=== PATIENT | male | born 1950 | race Caucasian/White ===

== ENCOUNTER 2022-06-16 08:02 | Outpatient (CLI) | payer MEDICARE, SELFPAY ==
--- NOTE | ~2022-06-16 | XR_ITS ---
XR knee RT 2V 06/16/2022 08:35 Indication: Right knee pain Procedure: 2 views right knee Comparison: No prior studies for comparison. Findings: Mild osteoarthritis of the right knee. No fracture, subluxation or dislocation. No signific ant joint effusion. No foreign bodies. Impression: 1: Mild osteoarthritis of the right knee. Reviewed, dictated and finalized at location B. Impression: 1: Mild osteoarthritis of the right knee.
--- NOTE | ~2022-06-16 | XR_ITS ---
XR knee LT 2V 06/16/2022 08:35 Indication: Left knee pain Procedure: 2 views left knee Comparison: No prior studies for comparison. Findings: Mild osteoarthritis of the left knee. No fracture, subluxation or dislocation. No significa nt joint effusion. No foreign bodies. Impression: 1: Mild osteoarthritis of the left knee. Reviewed, dictated and finalized at location B. Impression: 1: Mild osteoarthritis of the left knee.
[2022-06-16 08:24] LABS: Basophils Absolute Auto 0.05 K/mm3 (0.00-0.10); Basophils Percent Auto 0.8 % (0.0-1.0); Eosinophils Absolute Auto 0.26 K/mm3 (0.02-0.50); Eosinophils Percent Auto 4.1 % (1.0-6.0); Hematocrit 43.9 % (37.0-46.0); Hemoglobin 15.1 g/dL (12.4-15.3); Immature Granulocyte Absolute 0.02 K/mm3 (0.00-0.00); Immature Granulocyte Percent A 0.3 % (0.0-0.0); Lymphocytes Absolute Auto 1.41 K/mm3 (1.10-4.50); Lymphocytes Percent Auto 22.3 % (18.0-42.0); Mean Corpuscular HGB Conc 34.4 g/dL (32.0-36.0); Mean Corpuscular Hemoglobin 31.5 pg (27.0-31.0); Mean Corpuscular Volume 91.5 fL (78.0-102.0); Mean Platelet Volume 8.7 fl (8.7-11.0); Monocytes Absolute Auto 0.84 K/mm3 (0.10-0.90); Monocytes Percent Auto 13.3 % (2.0-11.0); Neutrophils Absolute Auto 3.7 K/mm3 (1.7-7.2); Neutrophils Percent Auto 59.2 % (50.0-70.0); Platelet Count Result 346 K/mm3 (150-420); White Blood Count 6.3 K/mm3 (4.8-10.8)
[2022-06-16 08:49] LABS: Alanine Aminotransferase 25 U/L (16-63); Albumin Level 4.1 g/dL (3.4-5.0); Alkaline Phosphatase 49 U/L (46-116); Anion Gap 9 mmol/L (8-16); Aspartate Amino Transferase 17 U/L (15-37); Bilirubin,Total 0.4 mg/dL (0.00-1.00); Blood Urea Nitrogen 13 mg/dL (7-18); Calcium 9.2 mg/dL (8.5-10.1); Carbon Dioxide 29 mmol/L (21-32); Chloride 102 mmol/L (98-108); Cholesterol 229 mg/dL (0-200); Estimated Glomerular Filt Rate > 60; Glucose 125 mg/dL (70-99); HDL Direct 54 mg/dL (40-60); LDL Cholesterol Calculated 144 mg/dL (<130); Magnesium 1.8 mg/dL (1.8-2.4); Osmolality Calculated 291 mOsm/kg (285-295); Sodium 140 mmol/L (136-145); Total Protein 7.4 g/dL (6.4-8.2); Triglycerides 154 mg/dL (0-150)
[2022-06-17 16:32] LABS: Hemoglobin A1C 5.9 % (<5.7)
== END 2022-06-16 08:03 | disposition home or self-care (01) ==
LOC: CHSLAB 08:07
PROVIDERS: PCP Nurse Practitioner Family; Visit Provider Nurse Practitioner Family
DX: I49.9 Cardiac arrhythmia, unspecified (principal); I10 Essential (primary) hypertension; R73.09 Other abnormal glucose; Z13.6 Encounter for screening for cardiovascular disorders; M25.562 Pain in left knee; M25.561 Pain in right knee
CPT/HCPCS: 36415; 73560; 80053; 80061; 83036; 83735; 85025

== ENCOUNTER 2022-06-25 12:06 | Outpatient (CLI) | payer MEDICARE, SELFPAY ==
--- NOTE | 2022-06-25 12:12 | ECHO_ITS ---
Patient Info Name: Federico Nielsen Age: 71 years : 1950 Gender: Male Ht: 72 in Wt: 190 lbs BSA: 2.10 m2 HR: 69 bpm BP: 139 / 91 mmHg Technical Quality: Fair Exam Date: 06/25/2022 12:05 PM Exam Location: [facility] Patient Status: Outpatient Admit Date: 06/25/2022 Staff Ordering Physician: Marysol Ansari NP Educational Administrator: Kapil Cason RDCS, RT Attending Provider: Marysol Ansari NP Referring Physician: Elan BARRON; Exam Type: CA echo doppler color flow Study Info Indications I51.7 - Cardiomegaly Complete two-dimensional, color flow and Doppler transthoracic echocardiogram is performed. Strain analysis performed. Summary 1. Complete two-dimensional, color flow and Doppler transthoracic echocardiogram is performed. 2. Left ventricular chamber dimension is normal. 3. Left ventricular systolic function is normal, estimated at 55-60%. 4. The left ventricular diastolic function is grade I diastolic dysfunction. 5. Tissue doppler E/e' is not measured. 6. Global longitudinal strain is normal at -20.3%. 7. There is mild aortic valve sclerosis. 8. There is mild to moderate aortic valve regurgitation. Left Ventricle Tissue doppler E/e' is not measured. Global longitudinal strain is normal at -20.3%. Left ventricular chamber dimension is normal. Left ventricular systolic function is normal, estimated at 55-60%. The left ventricular diastolic function is grade I diastolic dysfunction. Right Ventricle Right ventricular systolic function is normal and with normal TAPSE 2.5 cm. Right ventricular chamber dimension is normal. Left Atria Left atrial chamber dimension is normal. Right Atria Right atrial chamber dimension is normal. Aortic Valve The aortic valve is not well visualized. Cannot determine number of aortic valve leaflets. There is mild aortic valve sclerosis. There is no aortic valve stenosis. There is mild to moderate aortic valve regurgitation. Pulmonic Valve There is no pulmonic regurgitation. Mitral Valve There is no mitral valve stenosis. There is no mitral valve regurgitation. Tricuspid Valve There is no tricuspid valve regurgitation. Pericardium/Pleural There is no pericardial effusion. Inferior Vena Cava Normal inferior vena cava with >50% collapse upon inspiration consistent with normal right atrial pressure, 5 mmHg. Aorta The aortic root size at the sinus of Valsalva is normal. Left Ventricular Outflow Tract Name Value Normal LVOT 2D LVOT Diameter 2.1 cm LVOT Doppler LVOT Peak Velocity 102 cm/s LVOT Peak Gradient 4 mmHg LVOT Mean Gradient 2 mmHg LVOT VTI 17 cm LVOT VTI/AV VTI Ratio 0.8 LVOT Stroke Volume 60 ml Mitral Valve Name Value Normal MV Doppler
== END 2022-06-25 12:07 | disposition home or self-care (01) ==
LOC: CHSIMG 12:09
PROVIDERS: PCP Nurse Practitioner Family; Visit Provider Nurse Practitioner Family
DX: I51.7 Cardiomegaly (principal); I49.9 Cardiac arrhythmia, unspecified
CPT/HCPCS: 93306

== ENCOUNTER 2022-10-28 14:58 | Outpatient (CLI) | payer MEDICARE, SELFPAY ==
--- NOTE | ~2022-10-28 | US_ITS ---
US venous doppler [facility] DATE: 10/28/2022 15:28 INDICATION: Left calf swelling for 4 days TECHNIQUE: Real-time imaging of imaging and Doppler analysis of the veins of the left lower extremity COMPARISON: None FINDINGS: The left greater saphenous vein is patent. There is spontaneous and phasic flow of the left common femoral and femoral veins. There is normal compression of the structures. There is thrombosis of the left popliteal vein and left posterior tibial and peroneal veins, with lac k of compression. IMPRESSION: Thrombosis of left popliteal, posterior tibial and peroneal veins Dr. Nielsen telephoned the report on 10/28/2022 at 1535 hours to nurse practitioner Marysol. Reviewed, dictated and finalized at Location A. Reviewed, dictated and finalized at location L. ING ASSOCIATE
== END 2022-10-28 14:59 | disposition home or self-care (01) ==
LOC: CHSIMG 15:00
PROVIDERS: PCP Nurse Practitioner Family; Visit Provider Nurse Practitioner Family
DX: R60.0 Localized edema (principal); I82.432 Acute embolism and thrombosis of left popliteal vein; I82.442 Acute embolism and thrombosis of left tibial vein; I82.452 Acute embolism and thrombosis of left peroneal vein
CPT/HCPCS: 93971

== ENCOUNTER 2023-07-19 11:48 | Outpatient (CLI) | payer MEDICARE, SELFPAY ==
[2023-07-19 12:11] LABS: Basophils Absolute Auto 0.05 K/mm3 (0.00-0.10); Basophils Percent Auto 0.8 % (0.0-1.0); Eosinophils Absolute Auto 0.11 K/mm3 (0.02-0.50); Eosinophils Percent Auto 1.8 % (1.0-6.0); Hematocrit 44.4 % (37.0-46.0); Hemoglobin 14.8 g/dL (12.4-15.3); Immature Granulocyte Absolute 0.02 K/mm3 (0.00-0.00); Immature Granulocyte Percent A 0.3 % (0.0-0.0); Lymphocytes Absolute Auto 1.35 K/mm3 (1.10-4.50); Mean Corpuscular HGB Conc 33.3 g/dL (32.0-36.0); Mean Corpuscular Hemoglobin 30.9 pg (27.0-31.0); Mean Corpuscular Volume 92.7 fL (78.0-102.0); Monocytes Absolute Auto 0.65 K/mm3 (0.10-0.90); Monocytes Percent Auto 10.6 % (2.0-11.0); Neutrophils Percent Auto 64.5 % (50.0-70.0); Platelet Count Result 355 K/mm3 (150-420); Red Blood Count 4.79 M/mm3 (4.70-6.10); White Blood Count 6.1 K/mm3 (4.8-10.8)
[2023-07-19 13:06] LABS: Alanine Aminotransferase 33 U/L (16-63); Alkaline Phosphatase 39 U/L (46-116); Anion Gap 6 mmol/L (8-16); Aspartate Amino Transferase 18 U/L (15-37); Bilirubin,Total 0.6 mg/dL (0.00-1.00); Blood Urea Nitrogen 12 mg/dL (7-18); Calcium 9.5 mg/dL (8.5-10.1); Carbon Dioxide 33 mmol/L (21-32); Chloride 103 mmol/L (98-108); Cholesterol 247 mg/dL (0-200); Estimated Glomerular Filt Rate > 60; Glucose 90 mg/dL (70-99); HDL Direct 54 mg/dL (40-60); LDL Cholesterol Calculated 160 mg/dL (<130); Osmolality Calculated 293 mOsm/kg (285-295); Potassium 4.4 mmol/L (3.5-5.1); Sodium 142 mmol/L (136-145); Total Protein 7.5 g/dL (6.4-8.2); Triglycerides 164 mg/dL (0-150)
[2023-07-22 12:41] LABS: Vitamin D 25 Hydroxy 30 ng/mL (30-100)
== END 2023-07-19 11:49 | disposition home or self-care (01) ==
PROVIDERS: PCP Nurse Practitioner Family; Visit Provider Nurse Practitioner Family
DX: I10 Essential (primary) hypertension (principal); Z79.899 Other long term (current) drug therapy
CPT/HCPCS: 36415; 80053; 80061; 82306; 85025

== ENCOUNTER 2025-06-26 14:58 | Outpatient (CLI) | payer MEDICARE, SELFPAY ==
[2025-06-26 15:26] LABS: Hematocrit 41.0 % (37.0-46.0); Hemoglobin 13.8 g/dL (12.4-15.3); Immature Granulocyte Percent A 0.4 % (0.0-0.0); Lymphocytes Absolute Auto 1.51 K/mm3 (1.10-4.50); Mean Corpuscular HGB Conc 33.7 g/dL (32-36); Mean Corpuscular Hemoglobin 30.6 pg (27.0-31.0); Mean Corpuscular Volume 90.9 fL (78.0-102.0); Nucleated Red Blood Cells Absolute Auto 0.00 K/mm3 (0.00-0.00); Nucleated Red Blood Cells Perc 0.0 % (0-0.0); Platelet Count Result 345 K/mm3 (150-420); Red Blood Count 4.51 M/mm3 (4.70-6.10); White Blood Count 7.6 K/mm3 (4.8-10.8)
[2025-06-26 16:02] LABS: Alanine Aminotransferase 20 U/L (6-50); Albumin Level 4.8 g/dL (3.5-5.1); Alkaline Phosphatase 50 U/L (38-126); Anion Gap 8 mmol/L (4-12); Aspartate Amino Transferase 28 U/L (17-59); Bilirubin,Total 1.4 mg/dL (0.2-1.3); Blood Urea Nitrogen 19 mg/dL (9-20); Calcium 9.7 mg/dL (8.4-10.2); Carbon Dioxide 31 mmol/L (22-30); Chloride 104 mmol/L (98-107); Cholesterol 259 mg/dL (0-200); Estimated Glomerular Filt Rate > 60; Glucose 103 mg/dL (65-110); HDL Direct 57 mg/dL; Osmolality Calculated 298 mOsm/kg (285-295); Potassium 4.1 mmol/L (3.4-5.0); Sodium 143 mmol/L (137-145); Total Protein 7.3 g/dL (6.3-8.2); Triglycerides 262 mg/dL (<150)
--- OUTSIDE RECORDS SUMMARY | 2025-06-27 14:43 | XMS_ITS | Clinical Summary ---
Author Organization [facility] [address] Address [address] [place] [address] Care Team Providers Care Ups Driver Name Role Phone Marysol Ansari NP Primary Care Provider [phone] Allergies No known active allergies Medications benzonatate (TESSALON) 200 mg capsule TAKE 1 CAPSULE BY MOUTH TWICE A DAY NEEDED FOR COUGH 10/28/2022 Active fluticasone propionate (FLONASE) 50 mcg/actuation nasal spray SPRAY 1 SPRAY INTO EACH NOSTRIL DAILY 10/28/2022 Active lisinopriL (PRINIVIL,ZESTR IL) 20 mg tablet Take 20 mg by mouth daily 10/07/2022 Active apixaban (ELIQUIS) 5 mg tablet Take 5 mg by mouth 2 (two) times a day Active multivitamin with minerals tablet Take 1 tablet by mouth daily Active Active Problems Problem Noted Date Diagnosed Date Left leg DVT 11/03/2022 Assessment & Plan (11/03/2022 12:25 PM CDT): Left popliteal vein deep vein thrombosis. Discussed given its location the recommendation for continued medical therapy with Eliquis. Unprovoked DVT would recommend anticoagulation for 6 months. P.r.n. compression therapy for edema. Can follow-up p.r.n.. Primary hypertension 11/03/2022 Assessment & Plan (11/03/2022 12:26 PM CDT): Stable continue lisinopril 20 mg. 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 Gender Identity Not on file Sexual Orientation Not on file Last Filed Vital Signs Vital Sign Reading Time Taken Comments Blood Pressure - - Pulse - - Temperature - - Respiratory Rate - - Oxygen Saturation - - Inhaled Oxygen Concentration - - Weight 88.9 kg (196 lb) 11/03/2022 9:24 AM CDT Height 182.9 cm (6') 11/03/2022 9:24 AM CDT Body Mass Index 26.58 11/03/2022 9:24 AM CDT Plan of Treatment Health Maintenance Due Date Last Done Comments Colon Cancer Screening-Colonoscopy 1950 Depression Screening 1950 Fall Risk Assessment 1950 Hepatitis C Screening 1950 DTaP/Tdap/Td Vaccine (1 - Tdap) 1960 Hepatitis B Screening 1967 Zoster Vaccine (1 of 2) 1999 Abdominal Aortic Aneurysm (A AA) Screen 2014 Well Visit 65+ 2014 Pneumococcal vaccine 65+ (2 of 2 - PCV20 or PCV21) 06/14/2023 06/14/2022 Covid-19 Vaccine (4 - season) 2025 07/02/2021, 11/05/2020, 10/15/2020 Influenza Vaccine (#1) 2025 06/14/2022 Insurance MEDICARE [employer] Teams Ups Driver Relationship Specialty Start Date End Date Marysol Ansari NP [address] [place] [address] PCP - General Nurse Practitioner 11/01/22
== END 2025-06-26 14:59 | disposition home or self-care (01) ==
PROVIDERS: PCP Nurse Practitioner Family; Visit Provider Nurse Practitioner Family
DX: I10 Essential (primary) hypertension (principal); Z13.6 Encounter for screening for cardiovascular disorders
CPT/HCPCS: 36415; 80053; 80061; 85025